=== PATIENT | female | born 1970 | race Caucasian/White ===

== ENCOUNTER 2019-08-17 08:26 | Emergency (ER) | payer OTHER, SELFPAY ==
--- NOTE | ~2019-08-17 | XR_ITS ---
EXAMINATION: XR knee LT min 4V DATE: 08/17/2019 09:22 INDICATION: Left knee pain. TECHNIQUE: 4 views of left knee were obtained. COMPARISON: Left knee radiographs 02/12/2019 FINDINGS: Bone alignment is normal. No fracture. There is mild osteoarthritis of lateral and patellof emoral compartments. No knee joint effusion. IMPRESSION: 1. Mild left knee osteoarthritis. Reviewed, dictated and finalized at location A. [employer]
[2019-08-17 08:51] VITALS: BP 149/99; PULSE 98; RESP 14; TEMP 36.6; O2SAT 100
--- NOTE | 2019-08-17 09:44 | ED.LOWEXIN ---
HPI - Extremity Injury (Lower) General Chief Complaint: Extremity Injury, Lower Stated Complaint: L knee pain Time Seen by Provider: 08/17/19 09:07 Source: patient Mode of arrival: ambulatory Limitations: no limitations History of Present Illness HPI Narrative: This is a 49 year old female that presents to the ER for left knee pain x 1 month. No certain injury or trauma to the knee. Reports increasing pain especially with weight bearing. She has been taking OTC pain medication with little relief. Denies fever, erythema, edema or warmth. Related Data Allergies Allergy/AdvReac Type Severity Reaction Status Date / Time No Known Allergies Allergy Unverified 02/12/19 11:40 Review of Systems Review of Systems: Narrative: CONSTITUTIONAL: Denies fever SKIN: Denies rash MUSCULOSKELETAL: Reports joint pain, and myalgia. NEUROLOGIC: Denies numbness, or weakness. All systems reviewed & are unremarkable except as noted in HPI and below PMFSH Past Medical History Medical History (Updated 08/17/19 @ 09:48 by Carmen Gonzalez PA-C) History of migraine Family History Family History (Updated 02/21/18 @ 13:07 by DOCTOR UNKNOWN) Father Hypertension Social History Social History Smoking status: Never smoker Second hand tobacco smoke exposure: No Alcohol intake: never Gender identity (if verbalized by the patient): Female Exam Narrative: Exam Narrative: GENERAL: Well-appearing, well-nourished, and in no acute distress. HEAD: Normocephalic, atraumatic. EYES: EOMI. CHEST: Clear to auscultation. No respiratory distress. No wheezes rales or rhonchi HEART: Regular rate and rhythm. No murmur heard. Normal peripheral pulses. ABDOMEN: Soft, nontender, nondistended, normal active bowel sounds. EXTREMITIES: Normal range of motion in the left knee. No edema, erythema or warmth of the knee. Normal DP pulses SKIN: Warm, dry, no rash. NEURO: No focal deficits. Alert and oriented x3. PSYCH: Normal mood and affect Course Vital Signs Vital signs: Vital Signs Temperature 97.8 F 08/17/19 08:51 Pulse Rate 98 08/17/19 08:51 Respiratory Rate 14 08/17/19 08:51 Blood Pressure 149/99 H 08/17/19 08:51 Pulse Oximetry 100 03/06/20 08:51 Temperature 97.8 F 08/17/19 08:51 Pulse Rate 98 08/17/19 08:51 Respiratory Rate 14 08/17/19 08:51 Blood Pressure 149/99 H 08/17/19 08:51 Pulse Oximetry 100 08/17/19 08:51 MDM - Extremity Injury (Lower) MDM Narrative Medical decision making narrative: Patient presents to the emergency department for left knee pain for a month without known injury or trauma. She is afebrile and toxic appearing. No edema, erythema or warmth of the knee. She has normal range of motion in the knee. Left knee x-ray shows mild osteoarthritis. Patient was updated on case findings. She is instructed to rest, ice, elevate and take mstt-zdb-lnxyxoc pain medication as needed. She is to follow-up with her primary care doctor. She is given warnings to return to the ER Imaging Data Radiologist's impression: ITS Impressions Knee X-Ray 08/17/19 09:23 IMPRESSION: 1. Mild left knee osteoarthritis. Critical Care Time Critical Care Time Critical Care Time: No Discharge Plan Discharge Clinical Impression: Acute pain of left knee Patient Disposition: Home, Self-Care Condition: Stable Instructions: Knee Sprain (ED) Additional Instructions: Return to the emergency department if you experience fever, redness and swelling of the leg, you are unable to bend your knee, or any other symptoms that are concerning to you Wear IBETH wrap and use crutches. No weight on the affected leg until able to bear weight without pain. Ice and elevate extremity. Tylenol or ibuprofen as needed for pain Follow up with your doctor for further care. Follow-up/Referrals: Augie,Colleen Cook MD [Primary Care Provider] - 1 Week
[2019-08-17] MEDS: KETOROLAC (*BKC) 60 MG/2 ML VIAL IM (09:51)
[2019-08-17 10:19] VITALS: BP 147/100; PULSE 100; RESP 17; O2SAT 100
== END 2019-08-17 10:20 | disposition home or self-care (01) ==
PROVIDERS: Emergency Provider Emergency Medicine; PCP Internal Medicine Gastroenterology
DX: M25.562 Pain in left knee (principal); M17.12 Unilateral primary osteoarthritis, left knee
CPT/HCPCS: 73564; 96372; 99283; J1885

== ENCOUNTER 2020-01-31 14:17 | Emergency (ER) | payer OTHER, SELFPAY ==
--- NOTE | ~2020-01-31 | CT_ITS ---
EXAMINATION: CT cervical spine wo con DATE: 01/31/2020 14:54 INDICATION: Neck pain. TECHNIQUE: Computed tomography (CT) of the cervical spine was performed without intravenous contrast. Automated exposure control and iterative reconstruction technique were employed. The dose-length pro duct was 291.18 mGy-cm. COMPARISON: None FINDINGS: There is mild kyphosis of cervical spine. Vertebral body heights and intervertebral disc he ights are normal. The following disc levels are specifically discussed: C2-C3: There is no uncovertebral joint osteoarthritis. There is mild bilateral facet joint osteoarthr itis. There is no neural foraminal stenosis. There is no central canal stenosis. C3-C4: There is mild left uncovertebral joint osteoarthritis. There is mild left facet joint osteoart hritis. There is no neural foraminal stenosis. There is no central canal stenosis. C4-C5 through C6-C7: There is no uncovertebral joint osteoarthritis. There is no facet joint osteoart hritis. There is no neural foraminal stenosis. There is no central canal stenosis. C7-T1: There is no uncovertebral joint osteoarthritis. There is mild right and moderate left facet marlena int osteoarthritis. There is no neural foraminal stenosis. There is no central canal stenosis. IMPRESSION: 1. Mild cervical spondylosis. Reviewed, dictated and finalized at location A.
[2020-01-31 14:25] VITALS: BP 190/108; PULSE 98; RESP 16; TEMP 36.6; O2SAT 99
[2020-01-31] MEDS: KETOROLAC (*BKC) 60 MG/2 ML VIAL IM (14:58)
--- NOTE | 2020-01-31 15:00 | ED.NECK ---
HPI - Neck Pain/Injury General Chief Complaint: Unspecified Stated Complaint: posterior neck pain Time Seen by Provider: 01/31/20 14:27 Source: patient Mode of arrival: ambulatory Limitations: no limitations History of Present Illness HPI Narrative: This is a 49 year old female that presents to the ER for right-sided neck pain x 1 week. No known injury or trauma. She has not been taking anything at home for pain. Reports she was seen at another facility for this and sent home with a steroid taper with little relief. Denies fever, headache, vision changes, or vomiting. Related Data Home Medications Medication Instructions Recorded Confirmed byyftifpfe-rljczdkyukhzo-fuxa tablet 01/31/20 01/31/20 norethindrone (contraceptive) mg 01/31/20 sumatriptan succinate mg PO 01/31/20 vortioxetine [Trintellix] mg 01/31/20 Allergies Allergy/AdvReac Type Severity Reaction Status Date / Time No Known Allergies Allergy Verified 01/31/20 14:45 Review of Systems Review of Systems: Narrative: CONSTITUTIONAL: Denies fever EYES: Denies visual changes GASTROINTESTINAL: Denies vomiting MUSCULOSKELETAL:Reports joint pain, and myalgia. NEUROLOGIC: Denies headache, numbness, or weakness. All systems reviewed & are unremarkable except as noted in HPI and below PMFSH Past Medical History Medical History (Updated 01/31/20 @ 16:17 by Carmen Gonzalez PA-C) History of migraine Family History Family History (Updated 02/21/18 @ 13:07 by DOCTOR UNKNOWN) Father Hypertension Social History Social History Smoking status: Never smoker Second hand tobacco smoke exposure: No Alcohol intake: never Gender identity (if verbalized by the patient): Female Exam Narrative: Exam Narrative: GENERAL: Well-appearing, well-nourished, and in no acute distress. HEAD: Normocephalic, atraumatic. EYES: PERRLA and EOMI. ENT: Nares clear, no rhinorrhea or epistaxis. Mucous membranes moist. Oropharynx without tonsillar hypertrophy exudate or other lesions. Bilateral TMs pearly larose non-bulging NECK: Supple. No adenopathy or masses. No midline spinal tenderness. Tender to palpation of the right trapezius musculature CHEST: Clear to auscultation. No respiratory distress. No wheezes rales or rhonchi HEART: Regular rate and rhythm. No murmur heard. Normal peripheral pulses. EXTREMITIES: Normal range of motion. No edema. Strength equal in bilateral upper extremities (5/5). Normal sensation SKIN: Warm, dry, no rash. NEURO: No focal deficits. Alert and oriented x3. PSYCH: Normal mood and affect Course Vital Signs Vital signs: Vital Signs Temperature 98 F 01/31/20 14:25 Pulse Rate 98 01/31/20 14:25 Respiratory Rate 16 01/31/20 14:25 Blood Pressure 190/108 H 01/31/20 14:25 Pulse Oximetry 99 01/31/20 14:25 Temperature 98 F 01/31/20 14:25 Pulse Rate 100 01/31/20 15:40 Respiratory Rate 16 01/31/20 15:40 Blood Pressure 155/95 H 01/31/20 15:40 Pulse Oximetry 96 01/31/20 15:40 MDM - Neck Pain/Injury MDM Narrative Medical decision making narrative: Patient presents the emergency department for right-sided neck pain x1 week. No known injury or trauma. She is neurologically intact. She is afebrile and nontoxic-appearing. Blood pressure elevated upon arrival to 190/108. This improved after pain medication. Most recent blood pressure 155/95. CT scan of the cervical spine is without acute findings. Patient was updated on case findings. She reports improvement with Toradol. Patient is stable and felt appropriate for further outpatient evaluation. She is to follow-up with her primary care doctor Imaging Data Radiologist's impression: ITS Impressions Cervical Spine CT 01/31/20 15:04 IMPRESSION: 1. Mild cervical spondylosis. Critical Care Time Critical Care Time Critical Care Time: No Discharge Plan Discharge Clinical Impression: Neck pain on right side Patient Disposition:
[2020-01-31 15:40] VITALS: BP 155/95; PULSE 100; RESP 16; O2SAT 96
== END 2020-01-31 16:30 | disposition home or self-care (01) ==
PROVIDERS: Emergency Provider Emergency Medicine; PCP Internal Medicine Gastroenterology
DX: M54.2 Cervicalgia (principal); M47.812 Spondylosis without myelopathy or radiculopathy, cervical region
CPT/HCPCS: 72125; 96372; 99284; J1885

== ENCOUNTER 2020-04-03 13:58 | Emergency (ER) | payer OTHER, SELFPAY ==
[2020-04-03 14:08] VITALS: BP 129/74; PULSE 85; RESP 16; TEMP 36.8; O2SAT 99
[2020-04-03 14:47] LABS: Add Urine Microscopic? YES; Appearance Urine Cloudy (Clear); Bilirubin Urine Negative (Negative); Blood Urine 1+ (Negative); Color Urine Yellow (Yellow); Glucose Urine UA Negative (Negative); Ketones Urine Negative (Negative); Leukocyte Esterase Ur 1+ LEU/UL (Negative); Mucus Urine Rare /lpf; Nitrate Urine Negative (Negative); Protein Urine Negative (Negative); Squamous Epithelial Cell Urine Many /hpf (Few); Urobilinogen Urine Negative mg/dL (<2.0)
--- NOTE | 2020-04-03 15:49 | ED.FEMALEGU ---
HPI - Female Genitourinary General Chief complaint: Urogenital-Female Stated complaint: urinary frequency Time Seen by Provider: 04/03/20 14:50 Source: patient Mode of arrival: ambulatory Limitations: no limitations History of Present Illness HPI Narrative: This is a 49-year-old female that presents to the emergency department for urinary frequency. Reports she has had ongoing issues with this for the last couple of months. Also reports foul-smelling urine. Reports history of botulinum injection last year by urologist in [place]. Denies fever, abdominal pain, flank pain, vomiting, or hematuria. Related Data Home Medications Medication Instructions Recorded Confirmed atyxnquejg-syzxiytpgugas-fviq tablet 01/31/20 01/31/20 norethindrone (contraceptive) mg DAILY 01/31/20 sumatriptan succinate See Rx Instructions .ROUTE 01/31/20 .COMPLEX PRN vortioxetine [Trintellix] mg 01/31/20 amlodipine DAILY 04/03/20 topiramate BID 04/03/20 vortioxetine [Trintellix] mg DAILY 04/03/20 Allergies Allergy/AdvReac Type Severity Reaction Status Date / Time No Known Allergies Allergy Verified 04/03/20 14:39 Review of Systems Review of Systems: Narrative: CONSTITUTIONAL: Denies fever GASTROINTESTINAL: Denies abdominal pain, nausea, vomiting GENITOURINARY: Denies dysuria or hematuria. SKIN: Denies rash All systems reviewed & are unremarkable except as noted in HPI and below PMFSH Past Medical History Medical History (Updated 04/03/20 @ 15:56 by Carmen Gonzalez PA-C) History of migraine Family History Family History (Updated 02/21/18 @ 13:07 by DOCTOR UNKNOWN) Father Hypertension Social History Social History Smoking status: Never smoker Second hand tobacco smoke exposure: No Alcohol intake: never Gender identity (if verbalized by the patient): Female Exam Narrative: Exam Narrative: GENERAL: Well-appearing, well-nourished, and in no acute distress. HEAD: Normocephalic, atraumatic. EYES: EOMI. CHEST: Clear to auscultation. No respiratory distress. No wheezes rales or rhonchi HEART: Regular rate and rhythm. No murmur heard. Normal peripheral pulses. ABDOMEN: Soft, nontender, nondistended, normal active bowel sounds. No CVA tenderness EXTREMITIES: Normal range of motion. No edema. SKIN: Warm, dry, no rash. NEURO: No focal deficits. Alert and oriented x3. PSYCH: Normal mood and affect Course Vital Signs Vital signs: Vital Signs Temperature 98.3 F 04/03/20 14:08 Pulse Rate 85 04/03/20 14:08 Respiratory Rate 16 04/03/20 14:08 Blood Pressure 129/74 04/03/20 14:08 Pulse Oximetry 99 04/03/20 14:08 Temperature 98.3 F 04/03/20 14:08 Pulse Rate 85 04/03/20 14:08 Respiratory Rate 16 04/03/20 14:08 Blood Pressure 129/74 04/03/20 14:08 Pulse Oximetry 99 04/03/20 14:08 MDM - Female Genitourinary MDM Narrative Medical decision making narrative: Patient presents the emergency department for urinary frequency. Has likely history of overactive bladder and she has had botulinum toxin injection in the past. Reports this urologist is no longer practicing though. Was trying to get in to see a new urologist. She is afebrile and nontoxic-appearing. Denies any flank pain, abdominal pain, or vomiting. UA with 10-15 white blood cells and 1+ leuk esterase. This will go for culture. Patient will be presumptively started on antibiotics. She will be given urology for follow-up. Patient is stable and felt appropriate for further outpatient evaluation. She was given warnings to return to the ER Lab Data Attestation: I reviewed the patient's lab results. Labs: Lab Results 04/03/20 Range/Units 14:20 Urine Color Yellow (Yellow) Urine Appearance Cloudy H (Clear) Urine pH 5.0 (5.0-9.0) Ur Specific [place] 1.020 (1.001-1.035) Urine Protein Negative (Negative) mg/dL Urine Glucose (UA) Negative (Negative) mg/dL Urine Ketones Negative (Negative)
--- NOTE | 2020-04-03 15:58 | ED.FEMALEGU ---
HPI - Female Genitourinary General Chief complaint: Urogenital-Female Stated complaint: urinary frequency Time Seen by Provider: 04/03/20 14:50 Source: patient Mode of arrival: ambulatory Limitations: no limitations History of Present Illness HPI Narrative: This is a 49-year-old female that presents the emergency department for urinary frequency. Reports this has been an ongoing issue for her for the last couple of months. Does report history of bladder problems and needing botulinum toxin injection last year by a urologist. Also reports foul-smelling urine. Denies fever, abdominal pain, vomiting, flank pain, hematuria. Related Data Home Medications Medication Instructions Recorded Confirmed pbhgwnyguw-smcmmdsqyykwv-nnrq tablet 01/31/20 01/31/20 norethindrone (contraceptive) mg DAILY 01/31/20 sumatriptan succinate See Rx Instructions .ROUTE 01/31/20 .COMPLEX PRN vortioxetine [Trintellix] mg 01/31/20 amlodipine DAILY 04/03/20 topiramate BID 04/03/20 vortioxetine [Trintellix] mg DAILY 04/03/20 Allergies Allergy/AdvReac Type Severity Reaction Status Date / Time No Known Allergies Allergy Verified 04/03/20 14:39 Review of Systems Review of Systems: Narrative: CONSTITUTIONAL: Denies fever GASTROINTESTINAL: Denies abdominal pain, nausea, vomiting GENITOURINARY: Denies dysuria or hematuria. SKIN: Denies rash MUSCULOSKELETAL: Denies back pain All systems reviewed & are unremarkable except as noted in HPI and below PMFSH Past Medical History Medical History (Updated 04/03/20 @ 15:56 by Carmen Gonzalez PA-C) History of migraine Family History Family History (Updated 02/21/18 @ 13:07 by DOCTOR UNKNOWN) Father Hypertension Social History Social History Smoking status: Never smoker Second hand tobacco smoke exposure: No Alcohol intake: never Gender identity (if verbalized by the patient): Female Exam Narrative: Exam Narrative: GENERAL: Well-appearing, well-nourished, and in no acute distress. HEAD: Normocephalic, atraumatic. EYES: EOMI. CHEST: Clear to auscultation. No respiratory distress. No wheezes rales or rhonchi HEART: Regular rate and rhythm. No murmur heard. Normal peripheral pulses. ABDOMEN: Soft, nontender, nondistended, normal active bowel sounds. No CVA tenderness EXTREMITIES: Normal range of motion. No edema. SKIN: Warm, dry, no rash. NEURO: No focal deficits. Alert and oriented x3. PSYCH: Normal mood and affect Course Vital Signs Vital signs: Vital Signs Temperature 98.3 F 04/03/20 14:08 Pulse Rate 85 04/03/20 14:08 Respiratory Rate 16 04/03/20 14:08 Blood Pressure 129/74 04/03/20 14:08 Pulse Oximetry 99 04/03/20 14:08 Temperature 98.3 F 04/03/20 14:08 Pulse Rate 85 04/03/20 14:08 Respiratory Rate 16 04/03/20 14:08 Blood Pressure 129/74 04/03/20 14:08 Pulse Oximetry 99 04/03/20 14:08 MDM - Female Genitourinary MDM Narrative Medical decision making narrative: Patient presents to the emergency department for urinary frequency. Likely has history of overactive bladder she has had botulinum toxin injection in the past. Reports this urologist is no longer practicing so she was trying to get into see a new urologist. She is afebrile and nontoxic-appearing. Denies any abdominal pain, vomiting, or flank pain. UA with 10-15 white blood cells and 1+ leuk esterase. This will go for a culture. Patient will be presumptively started on oral antibiotics. She will be given urology for follow-up. Patient is stable and felt appropriate for further outpatient evaluation. She was given warnings to return to the ER Lab Data Attestation: I reviewed the patient's lab results. Labs: Lab Results 04/03/20 Range/Units 14:20 Urine Color Yellow (Yellow) Urine Appearance Cloudy H (Clear) Urine pH 5.0 (5.0-9.0) Ur Specific [place] 1.020 (1.001-1.035) Urine Protein Negative (Negative) mg/dL Urine Glucose (UA) Negat
[2020-04-03 16:39] VITALS: BP 146/86; PULSE 88; RESP 17; O2SAT 99
== END 2020-04-03 16:00 | disposition home or self-care (01) ==
PROVIDERS: Emergency Provider Emergency Medicine; PCP Family Medicine
DX: N39.0 Urinary tract infection, site not specified (principal)
CPT/HCPCS: 81001; 87077; 87086; 87088; 87186; 99283

== ENCOUNTER 2020-05-23 13:44 | Emergency (ER) | payer SELFPAY ==
--- NOTE | 2020-05-23 14:14 | PC.NURSE ---
pt left, decided not to wait. encouraged her to return if s/s worsened, pt agreeable
== END 2020-05-23 14:14 | disposition left against medical advice (07) ==
PROVIDERS: PCP Family Medicine
DX: M79.672 Pain in left foot (principal)
CPT/HCPCS: 99199

== ENCOUNTER 2020-05-24 12:46 | Emergency (ER) | payer OTHER, SELFPAY ==
--- NOTE | ~2020-05-24 | XR_ITS ---
EXAMINATION: XR foot LT min 3V DATE: 05/24/2020 13:29 INDICATION: Generalized left foot pain TECHNIQUE: Dorsoplantar, two oblique and lateral views of the left foot were obtained. COMPARISON: None. FINDINGS: Alignment is normal. No fracture. Minimal to mild polyarticular osteoarthritis at the first metatarso phalangeal and several tarsometatarsal and interphalangeal joints. No cortical erosions or periosteal reaction. Bunion with mild hypertrophic change at the medial head of the first metatarsal. Soft tiss ues are otherwise unremarkable. No left ankle joint effusion. IMPRESSION: 1. Minimal to mild polyarticular osteoarthritis in the mid and forefoot. No acute osseous abnormality . Reviewed, dictated and finalized at location A. [facility] IMPRESSION: 1. Minimal to mild polyarticular osteoarthritis in the mid and forefoot. No acu te osseous abnormality.
[2020-05-24 13:08] VITALS: BP 136/67; PULSE 93; RESP 18; TEMP 36.2; O2SAT 99
--- NOTE | 2020-05-24 13:50 | ED.LOWEXIN ---
HPI - Extremity Injury (Lower) General Chief Complaint: Extremity Injury, Lower Stated Complaint: left foot pain Time Seen by Provider: 05/24/20 13:16 Source: patient Mode of arrival: ambulatory Limitations: no limitations History of Present Illness HPI Narrative: This is a 49-year-old female that presents the emergency department for left foot pain x1 week. Reports the pain is on the plantar surface of the foot. Worse with weightbearing and relieved with rest. No known injury or trauma. Denies fever, erythema, or edema. Related Data Home Medications Medication Instructions Recorded Confirmed norethindrone (contraceptive) mg DAILY 01/31/20 sumatriptan succinate See Rx Instructions .ROUTE 01/31/20 .COMPLEX PRN vortioxetine [Trintellix] mg 01/31/20 amlodipine DAILY 04/03/20 topiramate BID 04/03/20 vortioxetine [Trintellix] mg DAILY 04/03/20 naproxen 05/24/20 Allergies Allergy/AdvReac Type Severity Reaction Status Date / Time No Known Allergies Allergy Verified 05/24/20 13:13 Review of Systems Review of Systems: Narrative: CONSTITUTIONAL: Denies fever SKIN: Denies rash MUSCULOSKELETAL: Reports joint pain, and myalgia. NEUROLOGIC: Denies numbness All systems reviewed & are unremarkable except as noted in HPI and below PMFSH Past Medical History Medical History (Updated 05/24/20 @ 15:14 by Carmen Gonzalez PA-C) History of hypertension History of migraine Family History Family History (Updated 02/21/18 @ 13:07 by DOCTOR UNKNOWN) Father Hypertension Social History Social History Smoking status: Never smoker Second hand tobacco smoke exposure: No Alcohol intake: never Gender identity (if verbalized by the patient): Female Exam Narrative: Exam Narrative: GENERAL: Well-appearing, well-nourished, and in no acute distress. HEAD: Normocephalic, atraumatic. EYES: EOMI. EXTREMITIES: Normal range of motion. No edema or erythema. Normal DP pulses. Normal sensation. Tender to palpation of the plantar fascia on the left SKIN: Warm, dry, no rash. NEURO: No focal deficits. Alert and oriented x3. PSYCH: Normal mood and affect Course Vital Signs Vital signs: Vital Signs Temperature 97.1 F L 05/24/20 13:08 Pulse Rate 93 05/24/20 13:08 Respiratory Rate 18 05/24/20 13:08 Blood Pressure 136/67 05/24/20 13:08 Pulse Oximetry 99 05/24/20 13:08 Temperature 97.1 F L 05/24/20 13:08 Pulse Rate 93 05/24/20 13:08 Respiratory Rate 18 05/24/20 13:08 Blood Pressure 136/67 05/24/20 13:08 Pulse Oximetry 99 05/24/20 13:08 MDM - Extremity Injury (Lower) MDM Narrative Medical decision making narrative: Patient presents to the emergency department for left foot pain x1 week. No known injury or trauma. Left foot x-ray shows mild polyarticular osteoarthritis. Exam and symptoms consistent with plantar fasciitis. Patient was instructed on care. She is to follow-up with primary care doctor. She was given warnings to return to the ER Imaging Data Radiologist's impression: ITS Impressions Foot X-Ray 05/24/20 14:51 IMPRESSION: 1. Minimal to mild polyarticular osteoarthritis in the mid and forefoot. No acute osseous abnormality. Critical Care Time Critical Care Time Critical Care Time: No Discharge Plan Discharge Clinical Impression: Plantar fasciitis of left foot Patient Disposition: Home, Self-Care Condition: Stable Instructions: Plantar Fasciitis (ED) Additional Instructions: Return to the emergency department if you experience fever, redness and swelling of your foot, numbness, or any other symptoms that are concerning to you Wear good padded shoes. You may buy inserts at the pharmacy to help with your plantar fasciitis. Anti-inflammatories as needed for pain. Ice to the area Follow-up with your primary care doctor Prescriptions: No Action sumatriptan succinate 100 mg tablet See Rx Instructions .ROUTE .COMP
--- NOTE | 2020-05-24 15:21 | PC.NURSE ---
patient waiting in room for disc from radiology/
== END 2020-05-24 15:22 | disposition home or self-care (01) ==
PROVIDERS: Emergency Provider Emergency Medicine; PCP Family Medicine
DX: M72.2 Plantar fascial fibromatosis (principal); I10 Essential (primary) hypertension
CPT/HCPCS: 73630; 99283

== ENCOUNTER 2020-12-25 09:33 | Emergency (ER) | payer OTHER, SELFPAY ==
--- NOTE | ~2020-12-25 | XR_ITS ---
XR foot LT min 3V DATE: 12/25/2020 10:09 INDICATION: Pain, small lump at bottom of the mid foot TECHNIQUE: 4 views COMPARISON: 05/24/2020 right foot FINDINGS: No fracture, dislocation, periosteal reaction or bone destruction. IMPRESSION: No significant abnormality Reviewed, dictated and finalized at location A. IMPRESSION: No significant abnormality
[2020-12-25 09:38] VITALS: BP 121/80; PULSE 91; RESP 17; TEMP 36.8; O2SAT 97
--- NOTE | 2020-12-25 10:20 | ED.LOWEXIN ---
HPI - Extremity Injury (Lower) General Chief Complaint: Extremity Injury, Lower Stated Complaint: L foot pain Time Seen by Provider: 12/25/20 09:38 Source: patient Mode of arrival: ambulatory Limitations: no limitations History of Present Illness HPI Narrative: This is a 50 year old female that presents to the ER for a painful area to the left foot x 2 weeks. No known injury or trauma. Reports it feels like there is something stuck in her foot. It is on the plantar surface of the foot. Denies fever, erythema, edema, or numbness. Related Data Home Medications Medication Instructions Recorded Confirmed norethindrone (contraceptive) mg DAILY 01/31/20 sumatriptan succinate See Rx Instructions .ROUTE 01/31/20 .COMPLEX PRN amlodipine DAILY 04/03/20 topiramate BID 04/03/20 vortioxetine [Trintellix] mg DAILY 04/03/20 Allergies Allergy/AdvReac Type Severity Reaction Status Date / Time No Known Allergies Allergy Verified 12/25/20 09:44 Review of Systems Review of Systems: Narrative: CONSTITUTIONAL: Denies fever SKIN: Denies rash MUSCULOSKELETAL: Reports myalgia. NEUROLOGIC: Denies numbness All systems reviewed & are unremarkable except as noted in HPI and below PMFSH Past Medical History Medical History (Updated 12/25/20 @ 10:26 by Carmen Gonzalez PA-C) History of hypertension History of migraine Family History Family History (Updated 02/21/18 @ 13:07 by DOCTOR UNKNOWN) Father Hypertension Social History Social History Smoking status: Never smoker Second hand tobacco smoke exposure: No Alcohol intake: never Gender identity (if verbalized by the patient): Female Exam Narrative: Exam Narrative: GENERAL: Well-appearing, well-nourished, and in no acute distress. HEAD: Normocephalic, atraumatic. EYES: EOMI. EXTREMITIES: Normal range of motion. No edema, erythema or warmth. Normal DP pulses. There appears to be a small wart on the plantar surface of the left foot laterally SKIN: Warm, dry, no rash. NEURO: No focal deficits. Alert and oriented x3. PSYCH: Normal mood and affect Course Vital Signs Vital signs: Vital Signs Temperature 98.2 F 12/25/20 09:38 Pulse Rate 91 12/25/20 09:38 Respiratory Rate 17 12/25/20 09:38 Blood Pressure 121/80 12/25/20 09:38 Pulse Oximetry 97 12/25/20 09:38 Temperature 98.2 F 12/25/20 09:38 Pulse Rate 91 12/25/20 09:38 Respiratory Rate 17 12/25/20 09:38 Blood Pressure 121/80 12/25/20 09:38 Pulse Oximetry 97 12/25/20 09:38 MDM - Extremity Injury (Lower) MDM Narrative Medical decision making narrative: Patient presents the emergency department for left foot pain present x2 weeks. No known injury or trauma. Left foot x-rays without acute osseous abnormalities. Patient does appear to have a small plantar wart in the area of discomfort. Instructed on care of this. She is to follow-up with her primary care doctor. She was given warnings to return to the ER Imaging Data Radiologist's impression: ITS Impressions Foot X-Ray 12/25/20 10:11 IMPRESSION: No significant abnormality Critical Care Time Critical Care Time Critical Care Time: No Discharge Plan Discharge Clinical Impression: Acute pain of left foot Patient Disposition: Home, Self-Care Condition: Stable Instructions: Plantar Wart (ED) Additional Instructions: Return to the emergency department if you experience fever, redness and swelling of your foot, numbness, or any other symptoms that are concerning to you There are several [id number] treatments available for plantar warts that you may try Follow-up with your primary care doctor Prescriptions: No Action sumatriptan succinate 100 mg tablet See Rx Instructions .ROUTE .COMPLEX PRN (Reason: Migraine Headache) RF: 0 norethindrone (contraceptive) 0.35 mg tablet DAILY RF: 0 Trintellix 20 mg tablet DAILY RF: 0 amlodipine 5 mg ta
== END 2020-12-25 10:33 | disposition home or self-care (01) ==
PROVIDERS: Emergency Provider Emergency Medicine; PCP Family Medicine
DX: M79.672 Pain in left foot (principal); I10 Essential (primary) hypertension
CPT/HCPCS: 73630; 99283

== ENCOUNTER 2021-01-17 12:58 | Emergency (ER) | payer OTHER, SELFPAY ==
[2021-01-17 12:59] VITALS: BP 125/90; PULSE 99; RESP 20; TEMP 36.2; O2SAT 99
[2021-01-17 14:20] LABS: Add Urine Microscopic? YES; Appearance Urine Cloudy (Clear); Bacteria Urine Trace /hpf; Bilirubin Urine Negative (Negative); Blood Urine Negative (Negative); Color Urine Amber (Yellow); Glucose Urine UA Negative (Negative); Ketones Urine Negative (Negative); Leukocyte Esterase Ur Trace LEU/UL (Negative); Mucus Urine Few /lpf; Nitrate Urine Negative (Negative); Protein Urine 1+ mg/dL (Negative); RBC Urine 0-2 /hpf (0-2); Specific Grav Ur 1.025 (1.001-1.035); Squamous Epithelial Cell Urine Few /hpf (Few)
--- NOTE | 2021-01-17 14:26 | ED.FEMALEGU ---
HPI - Female Genitourinary General Chief complaint: Urogenital-Female Stated complaint: THINK I HAVE A UTI Time Seen by Provider: 01/17/21 13:08 History of Present Illness HPI Narrative: Patient is a 50-year-old female who presents to the ER with concerns for UTI. Over the last couple days she has had some burning urination and urinary frequency. Reports she gets UTIs often when she drives to [facility] and drives back to visit her father. No fevers or chills or sweats. No flank pain. Related Data Home Medications Medication Instructions Recorded Confirmed norethindrone (contraceptive) mg DAILY 01/31/20 sumatriptan succinate See Rx Instructions .ROUTE 01/31/20 .COMPLEX PRN amlodipine DAILY 04/03/20 topiramate BID 04/03/20 vortioxetine [Trintellix] mg DAILY 04/03/20 Allergies Allergy/AdvReac Type Severity Reaction Status Date / Time No Known Allergies Allergy Verified 12/25/20 09:44 Review of Systems Constitutional: Constitutional: Denies chills and Denies fatigue Comments: Afebrile Gastrointestinal: Gastrointestinal: Denies nausea and Denies vomiting Genitourinary: Genitourinary: Reports nocturia, Reports dysuria and Denies flank pain PMFSH Past Medical History Medical History (Updated 01/17/21 @ 14:35 by Herminio Mejia MD) History of hypertension History of migraine Family History Family History (Updated 02/21/18 @ 13:07 by DOCTOR UNKNOWN) Father Hypertension Social History Social History Smoking status: Never smoker Second hand tobacco smoke exposure: No Alcohol intake: never Gender identity (if verbalized by the patient): Female Exam Narrative: GENERAL: Well-appearing, well-nourished, and in no acute distress. HEAD: Normocephalic, atraumatic. CHEST: Clear to auscultation. No respiratory distress. HEART: Regular rate and rhythm. Normal peripheral pulses. ABDOMEN: Soft, nontender, nondistended. NEURO: Alert and oriented x3. PSYCH: Normal mood and affect. Course Course Emergency Course: Discharge home with antibiotics. Vital Signs Vital signs: Vital Signs Temperature 97.2 F L 01/17/21 12:59 Pulse Rate 99 01/17/21 12:59 Respiratory Rate 20 01/17/21 12:59 Blood Pressure 125/90 01/17/21 12:59 Pulse Oximetry 99 01/17/21 12:59 Temperature 97.2 F L 01/17/21 12:59 Pulse Rate 99 01/17/21 12:59 Respiratory Rate 20 01/17/21 12:59 Blood Pressure 125/90 01/17/21 12:59 Pulse Oximetry 99 01/17/21 12:59 MDM - Female Genitourinary Lab Data Labs: Lab Results 01/17/21 Range/Units 14:01 Urine Color Marquita (Yellow) Urine Appearance Cloudy H (Clear) Urine pH 7.0 (5.0-9.0) Ur Specific [place] 1.025 (1.001-1.035) Urine Protein 1+ H (Negative) mg/dL Urine Glucose (UA) Negative (Negative) mg/dL Urine Ketones Negative (Negative) mg/dL Ur Blood (Man) Negative (Negative) Urine Nitrate Negative (Negative) Urine Bilirubin Negative (Negative) Urine Urobilinogen 2.0 H (<2.0) mg/dL Leukocyte Esterase Rfl Trace H (Negative) KISHAN/UL Urine RBC 0-2 (0-2) /hpf Urine WBC 7-9 H /hpf Ur Squamous Epith Cells Few (Few) /hpf Urine Bacteria Trace /hpf Urine Mucus Few H /lpf Discharge Plan Discharge Clinical Impression: Urinary tract infection Patient Disposition: Home, Self-Care Condition: Stable Instructions: Antibiotic Form, Urinary Tract Infection in Women (ED) Additional Instructions: Return to the ER if you have fever over 101F, you cannot keep down food/water, you lose consciousness, or you have additional concerns. Prescriptions: New cephalexin 500 mg capsule 500 mg PO Q12H Qty: 10 RF: 0 No Action sumatriptan succinate 100 mg tablet See Rx Instructions .ROUTE .COMPLEX PRN (Reason: Migraine Headache) RF: 0 norethindrone (contraceptive) 0.35 mg tablet DAILY RF: 0 Trintellix 20 mg tablet DAILY RF: 0 amlodipine 5 mg tablet
== END 2021-01-17 14:44 | disposition home or self-care (01) ==
PROVIDERS: Emergency Provider Emergency Medicine; PCP Family Medicine
DX: N39.0 Urinary tract infection, site not specified (principal); I10 Essential (primary) hypertension
CPT/HCPCS: 81001; 87077; 87086; 87088; 87186; 99283

== ENCOUNTER 2021-04-18 13:59 | Emergency (ER) | payer OTHER, SELFPAY ==
[2021-04-18 14:13] VITALS: BP 138/89; PULSE 97; RESP 18; TEMP 36.9; O2SAT 99
--- NOTE | 2021-04-18 14:32 | ED.URI ---
HPI - URI/Sore Throat General Chief Complaint: Upper Respiratory Infection Stated Complaint: URI x2 weeks Time Seen by Provider: 04/18/21 14:15 Source: patient and RN notes reviewed Mode of arrival: ambulatory Limitations: no limitations History of Present Illness HPI Narrative: This is 50 year old female who presents for evaluation of URI symptoms. Patient reports runny nose, postnasal drainage for 2 weeks. She states this is causing her to cough. She is coughing clear phlegm. She denies headache , nausea, vomiting, facial pain, sob, or fever. She has been taken claritin and aramis without improve. She also reports feeling fatigue and like a zombie Related Data Home Medications Medication Instructions Recorded Confirmed norethindrone (contraceptive) mg DAILY 01/31/20 sumatriptan succinate See Rx Instructions .ROUTE 01/31/20 .COMPLEX PRN amlodipine DAILY 04/03/20 topiramate BID 04/03/20 vortioxetine [Trintellix] mg DAILY 04/03/20 Allergies Allergy/AdvReac Type Severity Reaction Status Date / Time No Known Allergies Allergy Verified 04/18/21 14:16 Review of Systems Review of Systems: All systems reviewed & are unremarkable except as noted in HPI and below PMFSH Past Medical History Medical History Arthritis History of hypertension History of migraine Family History Family History (Updated 02/21/18 @ 13:07 by DOCTOR UNKNOWN) Father Hypertension Social History Social History Smoking status: Never smoker Second hand tobacco smoke exposure: No Alcohol intake: never Gender identity (if verbalized by the patient): Female Exam Const: General: no acute distress and alert Orientation/consciousness: patient oriented x3 HENMT: Head: normocephalic and atraumatic Ears: TM's normal bilaterally General nose exam: Normal external nose present, Normal nares present, No nasal polyps present, No nasal discharge present and Other nasal findings present (no sinus tenderness) Face and sinus: sinuses nontender and face symmetric Mouth: Yes Normal oral and palatal mucosa present, Yes lip normal, Yes oropharynx normal and Yes moist mucous membranes Throat: posterior oropharynx normal, tonsils normal and uvula midline Eyes: EOM: EOMs intact bilaterally Chest: Chest palpation & inspection: normal inspection of the chest Resp: Effort & Inspection: normal respiratory effort and no retractions Auscultation: clear to auscultation bilaterally Cardio: Rate: regular rate Rhythm: regular rhythm Heart sounds: no murmurs Skin: General skin exam: normal color Rashes: no rashes Neuro: General: patient oriented x3 and CN's II-XI intact bilaterally Psych: Mental Status: mental status grossly normal Affect: normal affect Course Reevaluation(s) Reevaluation #1: I discussed with patient that her URI symptoms are likely viral. She is not having headache, fever, facial pain or color phlegm so I explained we will treat symptomatic but no antibiotics are necessary at this time. I offered to perform blood work to assess her fatigue. She reports she just wants antibiotics and she is going to go somewhere else. Date: 04/18/21 Time: 14:57 Vital Signs Vital signs: Vital Signs Temperature 98.5 F 04/18/21 14:13 Pulse Rate 97 04/18/21 14:13 Respiratory Rate 18 04/18/21 14:13 Blood Pressure 138/89 04/18/21 14:13 Pulse Oximetry 99 04/18/21 14:13 Temperature 98.5 F 04/18/21 14:13 Pulse Rate 97 04/18/21 14:13 Respiratory Rate 18 04/18/21 14:13 Blood Pressure 138/89 04/18/21 14:13 Pulse Oximetry 99 04/18/21 14:13 Discharge Plan Discharge Clinical Impression: Viral URI with cough Patient Disposition: Home, Self-Care Condition: Stable Instructions: Upper Respiratory Infection (ED) Additional Instructions: Continue to treat symptoms Prescriptions: New fluticasone propionate [Flonase
== END 2021-04-18 15:20 | disposition home or self-care (01) ==
PROVIDERS: Emergency Provider General Practice; PCP Family Medicine
DX: J06.9 Acute upper respiratory infection, unspecified (principal); M19.90 Unspecified osteoarthritis, unspecified site
CPT/HCPCS: 99283

== ENCOUNTER 2022-08-08 17:19 | Emergency (ER) | payer OTHER, SELFPAY ==
[2022-08-08 17:24] VITALS: BP 146/79; PULSE 83; RESP 18; TEMP 36.5; O2SAT 100
[2022-08-08 19:37] VITALS: PULSE 67; RESP 8; O2SAT 100
[2022-08-08] MEDS: diphenhydrAMINE HCl INJ 50 MG/ML VIAL 25 MG IV PUSH (20:01)
[2022-08-08] MEDS: PROCHLORPERAZINE EDISYLATE 10 MG/2 ML VIAL IV PUSH (20:01)
[2022-08-08] MEDS: CAFFEINE 200 MG TABLET PO (20:02)
[2022-08-08] MEDS: SODIUM CHLORIDE 0.9% IV 1,000 ML 999 ML IV CONT (20:02)
--- NOTE | 2022-08-08 21:05 | ED.GENADULT ---
HPI - General Adult General Chief complaint: Headache Stated complaint: HEADACHE POST SPINAL TAP Time Seen by Provider: 08/08/22 19:34 History of Present Illness HPI narrative: Patient is a 52-year-old female who presents the emergency department with chief complaint of headache. Patient reports that she had a lumbar puncture done at [facility] by neurology and reports that since then she has been having a headache and has had pain in her neck. Patient reports she talked to her neurologist and they told her that it would get better but the patient is continue to have symptoms. Patient reports that she is concerned that she has a spinal headache. Related Data Home Medications Medication Instructions Recorded Confirmed norethindrone (contraceptive) 0.35 mg DAILY 01/31/20 mg tablet sumatriptan succinate 100 mg tablet See Rx Instructions .Route 01/31/20 .COMPLEX PRN Migraine Headache amlodipine 5 mg tablet DAILY 04/03/20 topiramate 100 mg tablet BID 04/03/20 vortioxetine 20 mg tablet mg DAILY 04/03/20 (Trintellix) Allergies Allergy/AdvReac Type Severity Reaction Status Date / Time No Known Allergies Allergy Verified 08/08/22 17:25 Review of Systems Review of Systems: A 10 system review of systems was completed on the patient and is negative except for what is stated in the HPI. Nursing and ancillary documentation was reviewed. [facility] Past Medical History Medical History Arthritis History of hypertension History of migraine Family History Family History Father Hypertension Social History Social History Smoking status: Never smoker Second hand tobacco smoke exposure: No Alcohol intake: never Gender identity (if verbalized by the patient): Female Exam Narrative: GENERAL: Well-appearing, well-nourished, and in no acute distress. HEAD: Normocephalic, atraumatic. EYES: PERRLA and EOMI. ENT: Nares clear, no rhinorrhea or epistaxis. Mucous membranes moist. NECK: Supple. CHEST: Clear to auscultation. No respiratory distress. HEART: Regular rate and rhythm. No murmur heard. Normal peripheral pulses. ABDOMEN: Soft, nontender, nondistended, normal active bowel sounds. EXTREMITIES: Normal range of motion. No edema. SKIN: Warm, dry, no rash. NEURO: No focal deficits. Alert and oriented x3. PSYCH: Normal mood and affect. Course Vital Signs Vital signs: Vital Signs Temperature 36.5 C 08/08/22 17:24 Pulse Rate 83 08/08/22 17:24 Respiratory Rate 18 08/08/22 17:24 Blood Pressure 146/79 H 08/08/22 17:24 Pulse Oximetry 100 08/08/22 17:24 Temperature 36.5 C 08/08/22 17:24 Pulse Rate 83 08/08/22 17:24 Respiratory Rate 18 08/08/22 17:24 Blood Pressure 146/79 H 08/08/22 17:24 Pulse Oximetry 100 08/08/22 17:24 Medical Decision Making MDM Narrative Medical decision making narrative: Patient shows no focal neurological deficit at this time Differential diagnosis includes spinal headache migraine headache, tension headache, Patient is not showing any signs of sepsis or signs of meningitis Patient received standard conservative management for spinal headache and is feeling much better at this time Vital Signs Vital Signs: Vital Signs Temperature 36.5 C 08/08/22 17:24 Pulse Rate 83 08/08/22 17:24 Respiratory Rate 18 08/08/22 17:24 Blood Pressure 146/79 H 08/08/22 17:24 Pulse Oximetry 100 08/08/22 17:24 Temperature 36.5 C 08/08/22 17:24 Pulse Rate 83 08/08/22 17:24 Respiratory Rate 18 08/08/22 17:24 Blood Pressure 146/79 H 08/08/22 17:24 Pulse Oximetry 100 08/08/22 17:24 Discharge Plan Discharge Clinical Impression: Spinal headache Patient Disposition: Home, Self-Care Condition: Stable Instructions: Ant
== END 2022-08-08 21:27 | disposition home or self-care (01) ==
PROVIDERS: Emergency Provider Emergency Medicine; PCP Family Medicine
DX: G97.1 Other reaction to spinal and lumbar puncture (principal); I10 Essential (primary) hypertension; M19.90 Unspecified osteoarthritis, unspecified site
CPT/HCPCS: 96361; 96374; 96375; 99284; A9270; J0131; J0780; J1200; J7030

== ENCOUNTER 2022-10-06 09:08 | Emergency (ER) | payer OTHER, SELFPAY ==
--- NOTE | ~2022-10-06 | XR_ITS ---
EXAMINATION: XR shoulder LT min 2V DATE: 10/06/2022 09:52 INDICATION: Left shoulder pain. TECHNIQUE: 4 views of left shoulder were obtained. COMPARISON: None. FINDINGS: Bone alignment is normal. No fracture. There is mild glenohumeral joint osteoarthritis. Acr omioclavicular joint is normal. IMPRESSION: 1. Mild left glenohumeral joint osteoarthritis. Reviewed, dictated and finalized at location A.
[2022-10-06 09:21] VITALS: BP 139/88; PULSE 81; RESP 18; TEMP 36.4; O2SAT 99
--- NOTE | 2022-10-06 09:41 | ED.GENADULT ---
HPI - General Adult General Chief complaint: Unspecified Stated complaint: ear infection Time Seen by Provider: 10/06/22 09:14 History of Present Illness HPI narrative: 52-year-old female history of allergic rhinitis, hypertension, migraine headaches presents to the emergency room for multiple complaints. Patient states for the last 2 weeks she has been experiencing fullness in both of her ears, postnasal drip, sinus congestion, sneezing, and coughing in the AM. Patient states that she has taken Zyrtec on occasion with no improvement of her symptoms. Patient also complains of left shoulder pain for several years, hurts when she moves around. States that she has seen orthopedist on 1 occasion and was given a shot of steroids. Patient denies any known injury or trauma to her shoulder. States pain is worse when she lays on it. Related Data Home Medications Medication Instructions Recorded Confirmed norethindrone (contraceptive) 0.35 mg DAILY 01/31/20 mg tablet sumatriptan succinate 100 mg tablet See Rx Instructions .Route 01/31/20 .COMPLEX PRN Migraine Headache amlodipine 5 mg tablet DAILY 04/03/20 topiramate 100 mg tablet BID 04/03/20 vortioxetine 20 mg tablet mg DAILY 04/03/20 (Trintellix) Allergies Allergy/AdvReac Type Severity Reaction Status Date / Time No Known Allergies Allergy Verified 08/08/22 17:25 Review of Systems Review of Systems: CONSTITUTIONAL: Denies fever, chills, or sweats. EYES: Denies visual changes, redness, or discharge. ENT: Reports rhinorrhea, congestion, sore throat, or otalgia. CARDIOVASCULAR: Denies chest pain, palpitations, or edema. RESPIRATORY: Denies cough or dyspnea. GASTROINTESTINAL: Denies abdominal pain, nausea, vomiting, or diarrhea. GENITOURINARY: Denies dysuria or hematuria. SKIN: Denies rash or itching. MUSCULOSKELETAL: Reports left shoulder pain NEUROLOGIC: Denies headache, numbness, dizziness, or weakness. PSYCHIATRIC: Denies anxiety or depression. [facility] Past Medical History Medical History Arthritis History of hypertension History of migraine Family History Family History Father Hypertension Social History Social History Smoking status: Never smoker Second hand tobacco smoke exposure: No Alcohol intake: never Gender identity (if verbalized by the patient): Female Exam Narrative: GENERAL: Well-appearing, well-nourished, no physical limitations, and in no acute distress. HEAD: Normocephalic, atraumatic. EYES: Conjunctivae normal, PERRLA and EOMI. ENT: External nose normal, Nares clear, no rhinorrhea or epistaxis. Mucous membranes moist. Oropharynx without tonsillar hypertrophy exudate or other lesions. External ears normal, bilateral TMs normal bilaterally with clear effusion CHEST: Clear to auscultation. No respiratory distress. No wheezes rales or rhonchi. HEART: Regular rate and rhythm. No murmur heard. Normal peripheral pulses. EXTREMITIES: Left shoulder: Tenderness. Full range of motion movement. Neurovascular is intact distally. Strength is 5/5, correspondence representative equal bilaterally SKIN: Warm, dry, no rash. No noted wounds NEURO: No focal deficits. Alert and oriented x3. MAEW. CN's II-XI intact bilaterally, normal gait PSYCH: Cooperative. Normal mood and affect. Course Vital Signs Vital signs: Vital Signs Temperature 36.4 C L 10/06/22 09:21 Pulse Rate 81 10/06/22 09:21 Respiratory Rate 18 10/06/22 09:21 Blood Pressure 139/88 10/06/22 09:21 Pulse Oximetry 99 10/06/22 09:21 Oxygen Delivery Room Air 10/06/22 09:21 Temperature 36.4 C L 10/06/22 09:21 Pulse Rate 81 10/06/22 09:21 Respiratory Rate 18 10/06/22 09:21 Blood Pressure 139/88 10/06/22 09:21 Pulse Oximetry 99 10/06/22 09:21 Oxygen Delivery Room Air 10/06/22 09:21
--- NOTE | 2022-10-06 09:45 | ED.GENADULT ---
HPI - General Adult General Chief complaint: Unspecified Stated complaint: ear infection Time Seen by Provider: 10/06/22 09:14 Related Data Home Medications Medication Instructions Recorded Confirmed norethindrone (contraceptive) 0.35 mg DAILY 01/31/20 mg tablet sumatriptan succinate 100 mg tablet See Rx Instructions .Route 01/31/20 .COMPLEX PRN Migraine Headache amlodipine 5 mg tablet DAILY 04/03/20 topiramate 100 mg tablet BID 04/03/20 vortioxetine 20 mg tablet mg DAILY 04/03/20 (Trintellix) Allergies Allergy/AdvReac Type Severity Reaction Status Date / Time No Known Allergies Allergy Verified 08/08/22 17:25 [facility] Past Medical History Medical History Arthritis History of hypertension History of migraine Family History Family History Father Hypertension Social History Social History Smoking status: Never smoker Second hand tobacco smoke exposure: No Alcohol intake: never Gender identity (if verbalized by the patient): Female Course Vital Signs Vital signs: Vital Signs Temperature 36.4 C L 10/06/22 09:21 Pulse Rate 81 10/06/22 09:21 Respiratory Rate 18 10/06/22 09:21 Blood Pressure 139/88 10/06/22 09:21 Pulse Oximetry 99 10/06/22 09:21 Oxygen Delivery Room Air 10/06/22 09:21 Temperature 36.4 C L 10/06/22 09:21 Pulse Rate 81 10/06/22 09:21 Respiratory Rate 18 10/06/22 09:21 Blood Pressure 139/88 10/06/22 09:21 Pulse Oximetry 99 10/06/22 09:21 Oxygen Delivery Room Air 10/06/22 09:21 Medical Decision Making Vital Signs Vital Signs: Vital Signs Temperature 36.4 C L 10/06/22 09:21 Pulse Rate 81 10/06/22 09:21 Respiratory Rate 18 10/06/22 09:21 Blood Pressure 139/88 10/06/22 09:21 Pulse Oximetry 99 10/06/22 09:21 Oxygen Delivery Room Air 10/06/22 09:21 Temperature 36.4 C L 10/06/22 09:21 Pulse Rate 81 10/06/22 09:21 Respiratory Rate 18 10/06/22 09:21 Blood Pressure 139/88 10/06/22 09:21 Pulse Oximetry 99 10/06/22 09:21 Oxygen Delivery Room Air 10/06/22 09:21 Imaging Data Radiologist's impression: Impressions Shoulder X-Ray 10/06/22 10:05 IMPRESSION: 1. Mild left glenohumeral joint osteoarthritis. Discharge Plan Discharge Clinical Impression: Arthritis of shoulder region, left URI (upper respiratory infection) Qualifiers: URI type: unspecified viral URI Qualified Code(s): J06.9 - Acute upper respiratory infection, unspecified Patient Disposition: Home, Self-Care Condition: Stable Instructions: Antibiotic Form Prescriptions: New naproxen 500 mg tablet 500 mg PO BID Qty: 30 0RF pseudoephedrine HCl [Sudafed 12 Hour] 120 mg tablet extended release 120 mg PO Q12H Qty: 20 0RF pseudoephedrine HCl [12 Hour Decongestant] 120 mg tablet extended release 120 mg PO Q12H Qty: 20 0RF No Action sumatriptan succinate 100 mg tablet See Rx Instructions .ROUTE .COMPLEX PRN (Reason: Migraine Headache) Rx Instructions: mg orally as needed norethindrone (contraceptive) 0.35 mg tablet DAILY Trintellix 20 mg tablet DAILY amlodipine 5 mg tablet DAILY topiramate 100 mg tablet BID cephalexin 500 mg capsule 500 mg PO Q12H Qty: 10 0RF fluticasone propionate [Flonase Allergy Relief] 50 mcg/actuation spray,suspension 1 spray intranasal Q12H Qty: 16 0RF Rx Instructions: administer into each nostril Claritin-D 12 Hour 5-120 mg tablet extended release 12 hr 1 tablet PO Q12H PRN (Reason: nasal congestion) Qty: 10 0RF Follow-up/Referrals: Judith,Justice Aguirre MD [Primary Care Provider] - Time of Disposition: 10:18
[2022-10-06 10:38] VITALS: BP 128/86; PULSE 69; RESP 18; O2SAT 99
== END 2022-10-06 10:38 | disposition home or self-care (01) ==
LOC: ANHED 10:17
PROVIDERS: Emergency Provider Nurse Practitioner Family; PCP Family Medicine
DX: J06.9 Acute upper respiratory infection, unspecified (principal); M19.012 Primary osteoarthritis, left shoulder; I10 Essential (primary) hypertension
CPT/HCPCS: 73030; 99283